=== PATIENT | male | born 1985 | race Caucasian/White ===

== ENCOUNTER → 2017-02-17 | Outpatient (REF) | payer OTHER | LOC: M SFHCLERA 16:50 | PROVIDERS: ATTEND Physician Assistant | DX: J02.9 Acute pharyngitis, unspecified (principal) ==

== ENCOUNTER → 2019-06-18 | Outpatient (REF) | payer BC | LOC: M LAB LCGH 15:03 | PROVIDERS: ATTEND Surgery | DX: K35.80 Unspecified acute appendicitis (principal) ==

== ENCOUNTER → 2020-02-11 | Outpatient (CLI) | payer BC | LOC: M LABSMTC 11:32 | PROVIDERS: ATTEND Family Medicine | DX: Z11.59 Encounter for screening for other viral diseases (principal); Z20.828 Contact with and (suspected) exposure to other viral communicable diseases ==

== ENCOUNTER → 2023-11-17 | Outpatient (REF) | payer BC | LOC: M SFHCDERM 18:08 | PROVIDERS: ATTEND Dermatology | DX: L57.0 Actinic keratosis (principal) ==